=== PATIENT | female | born 1980 | race Caucasian/White ===

== ENCOUNTER 2017-03-26 09:46 | Inpatient (IN) | payer MEDICAID ==
[~2017-03-26 09:46] MED LIST: OXYTOCIN 30 UNITS/LR 500 ML BAG IV
[2017-03-26] MEDS ORDERED: CEFAZOLIN 2 GM/50 ML (PMX) 50 ML IV ×2 (11:00→18:00)
[2017-03-26] MEDS ORDERED: METHYLERGONOVINE 0.2 MG INJ IM ×2 (11:00→18:00)
[2017-03-26] MEDS ORDERED: MISOPROSTOL 200 MCG TAB PR ×2 (11:00→18:00)
[2017-03-26] MEDS ORDERED: CARBOPROST 250 MCG INJ IM ×2 (11:00→18:00)
[2017-03-26] MEDS ORDERED: OXYTOCIN 30 UNITS/LR 500 ML IV ×2 (11:00→18:00)
[2017-03-26] MEDS: LACTATED RINGER'S 1,000 ML IV ×2 (11:17→20:05)
[2017-03-26 11:18] LABS: ADD MAN DIFF? NO
[2017-03-26 11:21] LABS: BASOPHILS % 0.3 % (0.0-2.0); EOSINOPHILS # 0.1 10^3/ul (0.0-0.5); EOSINOPHILS % 1.2 % (0.0-7.0); HEMATOCRIT 29.5 % (37.0-47.0); HEMOGLOBIN 9.3 g/dl (12.0-16.0); LYMPHOCYTES # 1.6 10^3/ul (0.8-2.9); LYMPHOCYTES % 13.6 % (15.0-51.0); MEAN CORPUSCULAR HEMOGLOBIN 26.9 pg (29.0-33.0); MEAN CORPUSCULAR HGB CONC 31.5 g/dl (32.0-37.0); MEAN CORPUSCULAR VOLUME 85.3 fl (82.0-101.0); MEAN PLATELET VOLUME 11.6 fl (7.4-10.4); MONOCYTE # 0.7 10^3/ul (0.3-0.9); MONOCYTES % 5.8 % (0.0-11.0); NEUTROPHIL # 9.4 10^3/ul (1.6-7.5); NEUTROPHILS % 77.9 % (39.0-77.0); PLATELET COUNT 333 10^3/UL (140-415); RED BLOOD COUNT 3.46 10^6/ul (4.20-5.40); RED CELL DISTRIBUTION WIDTH 14.7 % (11.5-14.5)
[2017-03-26 11:44] LABS: PROTIME 12.2 Sec (11.9-14.9)
[2017-03-26 11:45] LABS: PARTIAL THROMBOPLASTIN TIME 25.9 Sec (25.0-35.0)
[2017-03-26] MEDS: AMPICILLIN 2 GM/NS (PMX) 100 ML IVPB (11:57)
[2017-03-26] MEDS ORDERED: AMPICILLIN 1 GM/NS (PMX) 50 ML IVPB (13:00)
[2017-03-26] MEDS: CITRIC ACID/SODIUM CITRATE 15 ML CUP PO (13:02)
[2017-03-26] MEDS: ONDANSETRON 4 MG INJ IV (13:02)
[2017-03-26] MEDS ORDERED: morphine SULFATE/PF (10 MG/10 ML) INJ (13:41)
[2017-03-26] MEDS ORDERED: EPHEDrine SULFATE 50 MG/5 ML SYG (13:53)
[2017-03-26] MEDS ORDERED: DIPHENHYDRAMINE 50 MG INJ IV ×2 (15:00)
[2017-03-26] MEDS ORDERED: FENTAnyl 50 MCG/ML VIAL IV ×2 (15:00)
[2017-03-26] MEDS ORDERED: hydrALAzine 20 MG INJ IV (15:00)
[2017-03-26] MEDS ORDERED: NALBUPHINE HCL (10 MG/1 ML) INJ IV (15:00)
[2017-03-26] MEDS ORDERED: HYDROmorphONE (0.2 MG/ML) 10ML SYG IV ×2 (15:00)
[2017-03-26] MEDS ORDERED: MEPERIDINE 25 MG INJ IV (15:00)
[2017-03-26] MEDS ORDERED: HYDROmorphONE 0.5 MG/0.5 ML SYG IV (15:00)
[2017-03-26] MEDS ORDERED: ONDANSETRON 4 MG INJ IV ×2 (15:00)
[2017-03-26] MEDS ORDERED: LABETALOL HCL 20MG INJ IV (15:00)
[2017-03-26] MEDS ORDERED: NALOXONE (0.4 MG/ML) INJ IV (15:00)
[2017-03-26] MEDS ORDERED: ZOLPIDEM 5 MG TAB PO (15:00)
[2017-03-26] MEDS ORDERED: METOCLOPRAMIDE 10 MG INJ IV (15:00)
[2017-03-26 15:03] LABS: RAPID PLASMA REAGIN NONREACTIVE (NR)
[2017-03-26] MEDS: OXYTOCIN 30 UNITS/LR 500 ML IV (16:02)
[2017-03-26] MEDS: HYDROmorphONE (0.2 MG/ML) 10ML SYG IV (16:15)
[2017-03-26 16:35] LABS: HEPATITIS B SURFACE ANTIGEN NEGATIVE (NEGATIVE)
[2017-03-26] MEDS: CLINDAMYCIN 300 MG CAP PO ×2 (18:00→23:56)
[2017-03-26] MEDS: HYDROmorphONE 0.5 MG/0.5 ML SYG IV (18:38)
[2017-03-26] MEDS: SENNA/DOCUSATE NA (8.6MG/50MG) TAB PO (21:06)
[2017-03-26] MEDS: CEFAZOLIN 2 GM/50 ML (PMX) 50 ML IVPB (22:10)
[2017-03-26] MEDS: LANOLIN 7 GM TUBE TOP (23:59)
[2017-03-27] MEDS: LACTATED RINGER'S 1,000 ML IV ×3 (03:27→17:38)
[2017-03-27] MEDS: CLINDAMYCIN 300 MG CAP PO ×3 (05:37→17:38)
[2017-03-27] MEDS: CEFAZOLIN 2 GM/50 ML (PMX) 50 ML IVPB ×2 (05:37→13:34)
[2017-03-27] MEDS: SENNA/DOCUSATE NA (8.6MG/50MG) TAB PO ×2 (10:00→20:53)
[2017-03-27] MEDS: HYDROmorphONE 0.5 MG/0.5 ML SYG IV (10:00)
[2017-03-27 10:19] LABS: ADD MAN DIFF? NO
[2017-03-27 10:26] LABS: BASOPHILS % 0.2 % (0.0-2.0); EOSINOPHILS # 0.1 10^3/ul (0.0-0.5); EOSINOPHILS % 0.6 % (0.0-7.0); HEMATOCRIT 28.5 % (37.0-47.0); HEMOGLOBIN 9.1 g/dl (12.0-16.0); LYMPHOCYTES # 1.2 10^3/ul (0.8-2.9); LYMPHOCYTES % 7.9 % (15.0-51.0); MEAN CORPUSCULAR HEMOGLOBIN 27.4 pg (29.0-33.0); MEAN CORPUSCULAR HGB CONC 31.9 g/dl (32.0-37.0); MEAN CORPUSCULAR VOLUME 85.8 fl (82.0-101.0); MEAN PLATELET VOLUME 11.8 fl (7.4-10.4); MONOCYTE # 0.9 10^3/ul (0.3-0.9); MONOCYTES % 5.7 % (0.0-11.0); NEUTROPHIL # 13.4 10^3/ul (1.6-7.5); NEUTROPHILS % 84.8 % (39.0-77.0); PLATELET COUNT 296 10^3/UL (140-415); RED BLOOD COUNT 3.32 10^6/ul (4.20-5.40); RED CELL DISTRIBUTION WIDTH 14.8 % (11.5-14.5)
[2017-03-27 10:26] LABS: WHITE BLOOD COUNT 15.7 10^3/ul (4.8-10.8)
[2017-03-27] MEDS: OXYCODONE/ACETAMINOPHEN (5/325) TAB PO (13:35)
[2017-03-27] MEDS: BISACODYL 10 MG SUPP PR (16:30)
[2017-03-27] MEDS: HYDROCODONE/APAP (5/325) TAB PO ×2 (17:37→22:55)
[2017-03-28] MEDS: CLINDAMYCIN 300 MG CAP PO ×5 (00:20→23:49)
[2017-03-28] MEDS: HYDROCODONE/APAP (5/325) TAB PO ×5 (03:10→21:22)
[2017-03-28 08:58] LABS: ADD MAN DIFF? NO
[2017-03-28 09:15] LABS: WHITE BLOOD COUNT 14.9 10^3/ul (4.8-10.8)
[2017-03-28 09:15] LABS: BASOPHIL # 0.1 10^3/ul (0.0-0.1); BASOPHILS % 0.3 % (0.0-2.0); EOSINOPHILS # 0.4 10^3/ul (0.0-0.5); EOSINOPHILS % 2.4 % (0.0-7.0); HEMATOCRIT 28.7 % (37.0-47.0); HEMOGLOBIN 9.1 g/dl (12.0-16.0); LYMPHOCYTES # 1.6 10^3/ul (0.8-2.9); LYMPHOCYTES % 10.8 % (15.0-51.0); MEAN CORPUSCULAR HEMOGLOBIN 27.5 pg (29.0-33.0); MEAN CORPUSCULAR HGB CONC 31.7 g/dl (32.0-37.0); MEAN CORPUSCULAR VOLUME 86.7 fl (82.0-101.0); MEAN PLATELET VOLUME 11.5 fl (7.4-10.4); MONOCYTE # 0.9 10^3/ul (0.3-0.9); MONOCYTES % 6.2 % (0.0-11.0); NEUTROPHIL # 11.8 10^3/ul (1.6-7.5); NEUTROPHILS % 79.6 % (39.0-77.0); PLATELET COUNT 313 10^3/UL (140-415); RED BLOOD COUNT 3.31 10^6/ul (4.20-5.40)
[2017-03-28] MEDS: SENNA/DOCUSATE NA (8.6MG/50MG) TAB PO ×2 (12:08→21:22)
[2017-03-28] MEDS: VITAMIN A & D 5 GM OINT PACKET TOP (23:49)
[2017-03-29] MEDS: HYDROCODONE/APAP (5/325) TAB PO ×3 (01:42→10:22)
[2017-03-29] MEDS: CLINDAMYCIN 300 MG CAP PO (06:02)
[2017-03-29] MEDS: MEASLES,MUMPS,RUBELLA VACCINE INJ SC* (07:59)
[2017-03-29] MEDS: DIPHTH/TET/ACEL PERTUSS (ADULT) 0.5 ML VIAL IM* (07:59)
[2017-03-29 08:30] LABS: ADD MAN DIFF? NO
[2017-03-29 08:33] LABS: WHITE BLOOD COUNT 12.3 10^3/ul (4.8-10.8)
[2017-03-29 08:33] LABS: BASOPHILS % 0.2 % (0.0-2.0); EOSINOPHILS # 0.4 10^3/ul (0.0-0.5); EOSINOPHILS % 3.3 % (0.0-7.0); HEMATOCRIT 26.9 % (37.0-47.0); HEMOGLOBIN 8.5 g/dl (12.0-16.0); LYMPHOCYTES # 2.1 10^3/ul (0.8-2.9); LYMPHOCYTES % 16.9 % (15.0-51.0); MEAN CORPUSCULAR HEMOGLOBIN 27.3 pg (29.0-33.0); MEAN CORPUSCULAR HGB CONC 31.6 g/dl (32.0-37.0); MEAN CORPUSCULAR VOLUME 86.5 fl (82.0-101.0); MEAN PLATELET VOLUME 11.3 fl (7.4-10.4); MONOCYTE # 0.7 10^3/ul (0.3-0.9); MONOCYTES % 5.9 % (0.0-11.0); PLATELET COUNT 321 10^3/UL (140-415); RED BLOOD COUNT 3.11 10^6/ul (4.20-5.40)
[2017-03-29] MEDS: SENNA/DOCUSATE NA (8.6MG/50MG) TAB PO (09:30)
[2017-03-29] MEDS: NA PHOSPHATE/BIPHOS 133 ML ENEMA PR (09:30)
[2017-03-29] MEDS: VITAMIN A & D 5 GM OINT PACKET TOP (10:21)
== END 2017-03-29 13:11 | disposition home or self-care (01) | DRG 766 ==
LOC: L-D 09:46 → PP1 17:30
PROVIDERS: Obstetrics & Gynecology
PROC: 10D00Z1 Extraction of Products of Conception, Low, Open Approach (ICD-10-PCS; principal; 2017-03-26 12:30)
PROC: 0UL70ZZ Occlusion of Bilateral Fallopian Tubes, Open Approach (ICD-10-PCS; 2017-03-26 12:30)
DX: O82 Encounter for cesarean delivery without indication (principal); Z30.2 Encounter for sterilization; Z37.0 Single live birth; Z3A.39 39 weeks gestation of pregnancy
CPT/HCPCS: 85025; 85610; 85730; 86592; 86850; 86900; 86901; 87340; 88302; 90715; 99464

== ENCOUNTER 2017-04-21 09:08 | Emergency (ER) | payer SELFPAY, MEDICAID ==
[2017-04-21 10:13] LABS: ADD MAN DIFF? NO
[2017-04-21 10:14] LABS: BASOPHIL # 0.1 10^3/ul (0.0-0.1); BASOPHILS % 0.4 % (0.0-2.0); EOSINOPHILS # 0.1 10^3/ul (0.0-0.5); EOSINOPHILS % 0.9 % (0.0-7.0); HEMATOCRIT 35.9 % (37.0-47.0); HEMOGLOBIN 11.6 g/dl (12.0-16.0); LYMPHOCYTES # 1.8 10^3/ul (0.8-2.9); LYMPHOCYTES % 14.7 % (15.0-51.0); MEAN CORPUSCULAR HEMOGLOBIN 27.6 pg (29.0-33.0); MEAN CORPUSCULAR HGB CONC 32.3 g/dl (32.0-37.0); MEAN CORPUSCULAR VOLUME 85.5 fl (82.0-101.0); MEAN PLATELET VOLUME 10.3 fl (7.4-10.4); MONOCYTE # 0.8 10^3/ul (0.3-0.9); MONOCYTES % 6.5 % (0.0-11.0); NEUTROPHIL # 9.3 10^3/ul (1.6-7.5); NEUTROPHILS % 77.2 % (39.0-77.0); PLATELET COUNT 447 10^3/UL (140-415); RED CELL DISTRIBUTION WIDTH 14.1 % (11.5-14.5)
[2017-04-21 10:14] LABS: WHITE BLOOD COUNT 12.1 10^3/ul (4.8-10.8)
[2017-04-21] MEDS: SOD CHLORIDE 0.9% 1,000 ML IV (10:17)
[2017-04-21] MEDS: ONDANSETRON 4 MG INJ IV (10:17)
[2017-04-21] MEDS: HYDROmorphONE 1 MG/ML SYG IV ×2 (10:17→11:06)
[2017-04-21 10:30] LABS: ALANINE AMINOTRANSFERASE 41 IU/L (13-69); ALBUMIN 4.4 g/dl (3.3-4.9); ALBUMIN/GLOBULIN RATIO 1.12; ALKALINE PHOSPHATASE 85 IU/L (42-121); ANION GAP 18 (8-16); ASPARTATE AMINO TRANSFERASE 21 IU/L (15-46); BILIRUBIN,INDIRECT 0.2 mg/dl (0-1.1); BILIRUBIN,TOTAL 0.2 mg/dl (0.2-1.3); BLOOD UREA NITROGEN 12 mg/dl (7-20); CALCIUM 9.6 mg/dl (8.4-10.2); CARBON DIOXIDE 28 mmol/L (21-31); CHLORIDE 106 mmol/L (97-110); CREATININE 0.83 mg/dl (0.44-1.00); GLUCOSE 90 mg/dl (70-220); SODIUM 148 mmol/L (135-144); TOTAL PROTEIN 8.3 g/dl (6.1-8.1)
[2017-04-21 10:33] LABS: INR 0.95; PROTIME 12.8 Sec (11.9-14.9)
[2017-04-21 10:34] LABS: PARTIAL THROMBOPLASTIN TIME 28.7 Sec (25.0-35.0)
[2017-04-21 10:50] LABS: ADD UMIC YES; UR ASCORBIC ACID NEGATIVE (NEGATIVE); UR BACTERIA FEW /HPF (NONE SEEN); UR BILIRUBIN (Dip) NEGATIVE (NEGATIVE); UR BLOOD (Dip) 3+ mg/dL (NEGATIVE); UR CLARITY SLIGHTLY CLOUDY (CLEAR); UR COLOR YELLOW (YELLOW); UR GLUCOSE (Dip) NEGATIVE (NEGATIVE); UR KETONES (Dip) NEGATIVE (NEGATIVE); UR LEUKOCYTE ESTERASE (Dip) 3+ Leu/ul (NEGATIVE); UR MUCUS MODERATE /HPF (NONE SEEN); UR NITRITE (Dip) NEGATIVE (NEGATIVE); UR RBC > 182 /HPF (0-5); UR SPECIFIC GRAVITY (Dip) 1.028 (1.003-1.030); UR SQUAMOUS EPITHELIAL CELL FEW /HPF (FEW); UR TOTAL PROTEIN (Dip) 1+ mg/dl (NEGATIVE); UR UROBILINOGEN (Dip) NEGATIVE (NEGATIVE); UR WBC 77 /HPF (0-5)
[2017-04-21] MEDS: LIDOCAINE 1% (MDV) 20 ML INJ SC (11:05)
== END 2017-04-21 14:04 | disposition home or self-care (01) ==
LOC: E/R 09:08
DX: N75.0 Cyst of Bartholin's gland (principal)
CPT/HCPCS: 36415; 76830; 76856; 80053; 81001; 85025; 85610; 85730; 86850; 86900; 86901; 96374; 96375; 96376; 99285-25